=== PATIENT | female | born 2000 | race African-American/Black ===

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

== ENCOUNTER 2022-05-29 15:35 | Observation (INO) | payer OTHER, SELFPAY ==
[2022-05-29 15:24] VITALS: BP 95/53; PULSE 105; RESP 16; TEMP 36.8; O2SAT 100
[2022-05-29 15:47] LABS: Basophils Absolute Auto 0.1 K/mm3 (0.0-0.1); Basophils Percent Auto 0.4 % (0.2-1.2); Eosinophils Absolute Auto 0.1 K/mm3 (0-0.3); Eosinophils Percent Auto 0.3 % (0-4.4); Hematocrit 36.6 % (37.0-47.0); Hemoglobin 11.4 g/dL (12.0-15.0); Immature Granulocyte Absolute 0.08 K/mm3 (0.00-0.031); Immature Granulocyte Percent A 0.4 % (0-0.5); Lymphocytes Absolute Auto 1.28 K/mm3 (0.9-3.2); Lymphocytes Percent Auto 6.9 % (18.3-44.2); Mean Corpuscular HGB Conc 31.1 g/dl (32-36); Mean Corpuscular Hemoglobin 24.5 pg (26-34); Mean Corpuscular Volume 78.7 fl (80-100); Mean Platelet Volume 10.8 fl (7.4-10.4); Monocytes Absolute Auto 1.1 K/mm3 (0.1-0.6); Monocytes Percent Auto 5.9 % (2.6-8.5); Neutrophils Absolute Auto 15.9 K/mm3 (1.3-6.7); Neutrophils Percent Auto 86.1 % (45.5-73.1); Platelet Count Result 288 k/mm3 (150-375); Red Blood Count 4.65 M/mm3 (4.2-5.4); Red Cell Distribution Width 14.6 % (11.5-14.5); White Blood Count 18.5 K/mm3 (4.5-10.0)
[2022-05-29 15:56] LABS: Alanine Aminotransferase 25 U/L (6-35); Albumin Level 4.2 g/dL (3.7-5.6); Alkaline Phosphatase 100 U/L (45-116); Anion Gap 13 mmol/L (8-16); Aspartate Amino Transferase 24 U/L (14-36); Bilirubin,Total 0.4 mg/dL (0.2-1.3); Blood Urea Nitrogen 7 mg/dL (8-21); Calcium 8.6 mg/dL (8.9-10.7); Carbon Dioxide 22 mmol/L (22-30); Chloride 103 mmol/L (98-107); Estimated CRCL calculation 154 ml/min; Estimated Glomerular Filt Rate > 60; Glucose 92 mg/dL (65-110); Lipase 56 U/L (23-300); Potassium 3.3 mmol/L (3.4-5.0); Sodium 138 mmol/L (134-143)
[2022-05-29 16:01] VITALS: BP 100/80; PULSE 95
[2022-05-29 16:15] VITALS: BP 116/74; PULSE 96
[2022-05-29 16:18] VITALS: TEMP 37
--- NOTE | 2022-05-29 16:24 | PC.NURSE ---
1613- Spoke with Dr. Cote, labs and NST reviewed. Orders to send patient back to ED to be further evaluated by a physician.
--- NOTE | 2022-05-29 16:26 | OBADM ---
This patient, Laly Mcclendon, admitted to the OB room OB Post 117 for observation. Patient/family oriented to hospital policies and general routines including ID bracelet, bed and alarms, visiting hours, pain management, procedures, bathroom and other care routines, personal items, smoking policy, room service/diet, and visiting hours. Patient/Family are encouraged to report perceived risks to care and to ask questions if they do not understand what they are told or what they should do.
--- NOTE | 2022-06-27 21:53 | PM.OBTRLD ---
OB - Triage/Final Diagnosis Visit Information Comments/Additional reasons for admission: I have assessed the risk for this patient, Laly Mcclendon, and determined that she would benefit from observation care. Evaluation Laboratory results: Laboratory Tests 05/29/22 05/29/22 15:31 15:31 WBC 18.5 H RBC 4.65 Hgb 11.4 L D Hct 36.6 L MCV 78.7 L MCH 24.5 L MCHC 31.1 L RDW 14.6 H Plt Count 288 MPV 10.8 H Immature Gran % (Auto) 0.4 Neut % (Auto) 86.1 H Lymph % (Auto) 6.9 L [place] % (Auto) 5.9 Eos % (Auto) 0.3 Baso % (Auto) 0.4 Lymph # (Auto) 1.28 [place] # (Auto) 1.1 H Eos # (Auto) 0.1 Baso # (Auto) 0.1 Abs Immat Gran (auto) 0.08 H Absolute Neuts (auto) 15.9 H Absolute Nucleated RBC 0.0 Nucleated RBC % 0.0 Sodium 138 Potassium 3.3 L Chloride 103 Carbon Dioxide 22 Anion Gap 13 BUN 7 L Creatinine 0.50 L Estim Creat Clear Calc 154 Estimated GFR > 60 Glucose 92 Calcium 8.6 L Total Bilirubin 0.4 AST 24 ALT 25 Alkaline Phosphatase 100 Total Protein 8.0 Albumin 4.2 Lipase 56 Final Diagnosis (1) Abdominal pain: Code(s): R10.9 - Unspecified abdominal pain Status: Acute
== END 2022-05-29 16:30 | disposition other institution (70) ==
LOC: ANHOBPP 15:56
PROVIDERS: Emergency Medicine; Admitting Provider Obstetrics & Gynecology; Visit Provider Obstetrics & Gynecology
DX: O26.893 Other specified pregnancy related conditions, third trimester (principal); R10.9 Unspecified abdominal pain; Z3A.29 29 weeks gestation of pregnancy
CPT/HCPCS: 36415; 80053; 83690; 85025; G0378; G0379

== ENCOUNTER 2022-05-29 16:25 | Emergency (ER) | payer OTHER, SELFPAY ==
[2022-05-29 17:14] VITALS: BP 114/96; PULSE 94; RESP 16; TEMP 36.8; O2SAT 99
--- NOTE | 2022-05-29 18:45 | PC.NURSE ---
Left wr before ED room available.
== END 2022-05-29 18:46 | disposition left against medical advice (07) ==
DX: O26.892 Other specified pregnancy related conditions, second trimester (principal); Z3A.28 28 weeks gestation of pregnancy
CPT/HCPCS: 99199

== ENCOUNTER 2022-08-06 05:37 | Inpatient (IN) | payer OTHER, SELFPAY ==
--- NOTE | 2022-07-24 16:15 | PC.NURSE ---
Verified with OR schedule and Patient--C/S on 08/06/22 at 0730 Patient given requisition for lab draw on 08/05/22
[2022-08-06] VITALS (41 sets, daily range): BP systolic 82–125; BP diastolic 40–92; PULSE 53–84; RESP 15–18; TEMP 36.1–36.9; O2SAT 96–100
[2022-08-06 06:11] LABS: Basophils Percent Auto 0.2 % (0.2-1.2); Eosinophils Absolute Auto 0.1 K/mm3 (0-0.3); Eosinophils Percent Auto 0.9 % (0-4.4); Hematocrit 33.2 % (37.0-47.0); Hemoglobin 10.3 g/dL (12.0-15.0); Immature Granulocyte Absolute 0.13 K/mm3 (0.00-0.031); Immature Granulocyte Percent A 0.9 % (0-0.5); Lymphocytes Absolute Auto 1.92 K/mm3 (0.9-3.2); Lymphocytes Percent Auto 13.1 % (18.3-44.2); Mean Corpuscular Hemoglobin 23.5 pg (26-34); Mean Corpuscular Volume 75.8 fl (80-100); Mean Platelet Volume 10.4 fl (7.4-10.4); Monocytes Absolute Auto 1.1 K/mm3 (0.1-0.6); Monocytes Percent Auto 7.3 % (2.6-8.5); Neutrophils Absolute Auto 11.4 K/mm3 (1.3-6.7); Neutrophils Percent Auto 77.6 % (45.5-73.1); Platelet Count Result 273 k/mm3 (150-375); Red Blood Count 4.38 M/mm3 (4.2-5.4); Red Cell Distribution Width 15.7 % (11.5-14.5); White Blood Count 14.7 K/mm3 (4.5-10.0)
[2022-08-06 07:59] LABS: HIV 1/2 Ab P24 Ag Result Negative (Negative)
--- NOTE | 2022-08-06 08:02 | WPDANESEPPF ---
Anes - Initial Pre Proc Eval Procedure: Operation Date: 08/06/22 07:30 Proposed Procedures p Repeat Section - Augie Cote MD Date/Time: 08/06/22 08:02 Surgeon: Augie Cote MD Pre Op Diagnosis: c/s Patient Data Age: 21 Gender: F Height: Weight: 85 kg Last Vital Signs Pulse 84 08/06/22 06:31 BP 105/54 L 08/06/22 06:31 Allergies Allergy/AdvReac Type Severity Reaction Status Date / Time No Known Allergies Allergy Verified 07/24/22 16:01 Home Medications Medication Instructions Recorded Confirmed Type vit no.95-ferrous 1 tablet PO DAILY 09/22/20 08/06/22 History fumarate 28 mg-folic acid 800 mcg tablet () Laboratory Tests 08/06/22 08/06/22 08/06/22 06:05 06:05 06:05 WBC 14.7 K/mm3 H K/mm3 (4.5-10.0) RBC 4.38 M/mm3 M/mm3 (4.2-5.4) Hgb 10.3 g/dL L g/dL (12.0-15.0) Hct 33.2 % L % (37.0-47.0) MCV 75.8 fl L fl (80-100) MCH 23.5 pg L pg (26-34) MCHC 31.0 g/dl L g/dl (32-36) RDW 15.7 % H % (11.5-14.5) Plt Count 273 k/mm3 k/mm3 (150-375) MPV 10.4 fl fl (7.4-10.4) Immature Gran % (Auto) 0.9 % H % (0-0.5) Neut % (Auto) 77.6 % H % (45.5-73.1) Lymph % (Auto) 13.1 % L % (18.3-44.2) [place] % (Auto) 7.3 % % (2.6-8.5) Eos % (Auto) 0.9 % % (0-4.4) Baso % (Auto) 0.2 % % (0.2-1.2) Lymph # (Auto) 1.92 K/mm3 K/mm3 (0.9-3.2) [place] # (Auto) 1.1 K/mm3 H K/mm3 (0.1-0.6) Eos # (Auto) 0.1 K/mm3 K/mm3 (0-0.3) Baso # (Auto) 0.0 K/mm3 K/mm3 (0.0-0.1) Abs Immat Gran (auto) 0.13 K/mm3 H K/mm3 (0.00-0.031) Absolute Neuts (auto) 11.4 K/mm3 H K/mm3 (1.3-6.7) Absolute Nucleated RBC 0.0 K/mm3 K/mm3 (0.0-0.012) Nucleated RBC % 0.0 % % (0.0-0.2) RPR Pending HIV 1&2 Ab/P24 Ag 4thGn Blood Type B Positive Antibody Screen Negative 08/06/22 06:56 WBC RBC Hgb Hct MCV MCH MCHC RDW Plt Count MPV Immature Gran % (Auto) Neut % (Auto) Lymph % (Auto) [place] % (Auto) Eos % (Auto) Baso % (Auto) Lymph # (Auto) [place] # (Auto) Eos # (Auto) Baso # (Auto) Abs Immat Gran (auto) Absolute Neuts (auto) Absolute Nucleated RBC Nucleated RBC % RPR HIV 1&2 Ab/P24 Ag 4thGn Negative (Negative) Blood Type Antibody Screen Patient hx anesthesia problems: none Family hx anesthesia problems: none Results Review: All pre-operative results and documents have been reviewed as part of the pre-operative evaluation. 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 Family History Family History (Updated 07/24/22 @ 16:03 by Agustin Washington RN) Mother Arthritis Lupus Social History Social History Smoking status: Never smoker Substance use: never Lack of Transportation: No Lack of Food: Never True Current Housing: I Have Housing Concerned About Future Housing: No Difficulty Paying Gas/Electric Bills: No Difficulty Paying for Meds: No Currently Unemployed: No Education: High School Diploma/GED Difficulty w/ Childcare or Family Care: No Gender identity (if verbalized by the patient): Female Spiritual care concerns: No Anes - Eval Final PreProcedure Day of Procedure 08/06/22 08:02 Patient weight: obese Heart: regular rate and rhythm Lungs: clear to auscultation and normal air movement Airway: Mallampati scale class II Neurological: alert and oriented Last oral intake: >/= 8 hours ASA classification: II Emergent: no Anes
--- NOTE | 2022-08-06 08:05 | PM.IMHP ---
H&P: HPI History of Present Illness Date/Time: 08/06/22 08:05 Chief Complaint: Term Narrative: 21-year-old multiparous female with previous delivery at 39 weeks gestation who presents for repeat . We have agreed to repeat delivery. She understands that injuries may occur that result in hospitalization, more surgery, severe illness. She understands risk of hemorrhage and infection. she denies any nausea, vomiting, fever, chills. She denies any chest pain or shortness of breath. Review of Systems Review of Systems: All systems reviewed & are unremarkable except as noted in HPI and below Constitutional: Constitutional: Denies chills, Denies fatigue, Denies fever(s) and Denies weakness Eyes: Eyes: Denies blurry vision, Denies change in vision, Denies loss of peripheral vision, Denies loss of vision, Denies other visual disturbances and Denies eye pain ENT: Denies vertigo, Denies dizziness, Denies hearing loss, Denies mouth pain, Denies nasal obstruction, Denies neck mass and Denies neck pain Cardiovascular: Cardiovascular: Denies chest pain, Denies diaphoresis, Denies syncope, Denies leg edema and Denies dyspnea Respiratory: Respiratory: Denies chest congestion, Denies cough, Denies hemoptysis, Denies dyspnea and Denies wheezing Gastrointestinal: Gastrointestinal: Denies abdominal pain, Denies constipation, Denies diarrhea, Denies nausea and Denies vomiting Genitourinary: Genitourinary: Denies hematuria, Denies change in libido, Denies nocturia, Denies genital lesions, Denies flank pain and Denies urinary urgency Musculoskeletal: Musculoskeletal: Denies abnormal gait, Denies back pain, Denies myalgias, Denies arthralgias, Denies joint swelling, Denies muscle weakness and Denies neck pain Integumentary/Breasts: Skin/Breast: Denies swelling, Denies breast pain, Denies breast mass, Denies dry skin, Denies nipple discharge, Denies unusual bruising and Denies jaundice Neurologic: Denies Neuro-related abnormal movements, Denies Abnormal speech present, Denies abnormal gait, Denies behavioral changes, Denies confusion, Denies vertigo, Denies dizziness, Denies syncope, Denies loss of vision, Denies memory loss, Denies convulsions and Denies weakness Psychiatric: Psychiatric: Denies abnormal sleep pattern, Denies behavioral changes, Denies change in libido, Denies confusion, Denies depression, Denies anhedonia and Denies memory loss Endocrine: Endocrine: Reports no additional endocrine complaints, Denies change in libido and Denies fatigue Hematologic/Lymphatic: Hematologic/Lymphatic: Reports no additional hematologic/lymphatic complaints Allergic/Immunologic: Allergic/Immunologic: Reports no additional allergic/immunologic complaints and Denies wheezing PMFSH Past Medical History Medical History (Updated 06/27/22 @ 21:53 by Augie Cote MD) History of chlamydia 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 Family History Family History (Updated 07/24/22 @ 16:03 by Agustin Washington RN) Mother Arthritis Lupus Social History Social History Smoking status: Never smoker Substance use: never Lack of Transportation: No Lack of Food: Never True Current Housing: I Have Housing Concerned About Future Housing: No Difficulty Paying Gas/Electric Bills: No Difficulty Paying for Meds: No Currently Unemployed: No Education: High School Diploma/GED Difficulty w/ Childcare or Family Care: No Gender identity (if verbalized by the patient): Female Spiritual care concerns: No Meds Home Medications and Allergies Home Medications Medication Instructions Recorded Confirmed Type vit no.95-ferrous 1 tablet PO DAILY 09/22/20 08/06/22 History fumarate 28 mg-folic acid 800 mcg tablet () Allergies Allergy/AdvReac Type Severity Reaction Status Date / Time No Known Allergies Allergy Verified 07/24/22 16:01 Vital Signs
--- NOTE | 2022-08-06 08:07 | WPDHPUPDATE1 ---
History and Physical Update Update Date/Time: 08/06/22 08:07 History and Physical has been reviewed, including an updated exam of the patient. There are NO changes in the patient's condition. Risks, benefits, and alternatives have been discussed and questions answered. Patient agrees to proceed with procedure.
--- NOTE | 2022-08-06 08:58 | W.PM.PROC2 ---
Procedure Note - Detailed Date of Procedure 08/06/22 Pre-op Diagnosis Previous c/s Post-op Diagnosis Same Procedure Performed Low-transverse section Surgeon Augie Cote MD Anesthesia Spinal Indications previous Findings Normal gestational maternal anatomy, average size , normal Apgars. Description of Procedure The patient was taken the operating room. She was prepped and draped in dorsal supine position with a leftward tilt. This was done after spinal anesthetic was applied. A low-transverse skin incision was made and carried down till of the fascia with the knife. The fascial incision was made with the knife. The fascial incision was extended laterally with Polanco scissors. The fascia was tented upward superiorly and inferiorly the rectus muscles were dissected off bluntly. The rectus muscles were the midline. The preperitoneal fat and peritoneum were dissected open bluntly at the superior aspect of the rectus muscles. The peritoneal incision was extended superior and inferior with good position of bladder. The uterine incision was made with a scalpel down to the level of the amniotic cavity. The amniotic cavity was entered bluntly. The was delivered. The cord was clamped and cut and the was handed off to waiting pediatric staff. Cord bloods were obtained. The placenta was removed manually. The uterus was exteriorized. The uterus was cleared of all clots, debris and membranes. The uterus was closed in 0 Vicryl running lock fashion. An imbricating over a was placed along the incision line as well. The uterus was returned to the abdomen. The gutters were cleared of all clots and debris. The fascia was closed with 0 Vicryl running fashion. The subcutaneous tissue was irrigated pinpoint bleeders were cauterized. The skin was closed with subcuticular absorbable sam. The skin incision line was covered with glue. The patient tolerated the procedure well. She has taken recovery room in stable condition. Sponge lap and needle counts were correct x2. Estimated Blood Loss 350 Complications No immediate complications Condition Stable Disposition PACU
[2022-08-06] MEDS: OXYTOCIN 30 UNITS/NS 500 ML 30 UNITS/500 ML BAG 125 UNITS IV CONT (10:52)
[2022-08-06 14:20] LABS: Rapid Plasma Reagin Non-Reactive (NonReactive)
[2022-08-06] MEDS: DEXTROSE 5%/0.45% SOD CHL 1,000 ML 125 ML IV CONT (15:11)
[2022-08-06] MEDS: KETOROLAC 30 MG/ML VIAL (*BKC) IV PUSH (15:12)
--- NOTE | 2022-08-06 16:04 | PC.NURSE ---
[id number] Introductions were made, then consulted with patient to assess needs related to . Mother led the conversation with her?plans to feed?her infant and the?experience so far. Resources provided for inpatient and outpatient services with the mom/baby guide. Mother voiced understanding of information and receptive to assistance. Mother works well with her with encouragement and education. Encouraged understanding of the benefits of skin to skin (demonstrating unwrapping and placing upright on her chest), stimulating with massage touch, changing positions to encourage wakefulness, how to watch for early feeding cues, responsive feeding, feeding on demand (aiming for 8-12 times in 24 hours, about every 2-3 hours), milk production, building/maintaining a milk supply, duration of feeding, signs of adequate intake/output and how to record on the feeding sheet. Reviewed positioning and ear, shoulder, hip alignment, supporting the breast to facilitate a deep latch, asymmetrical latch (off-center), leading with the chin with a big, open, wide gape and body close to mother. Infant latched optimally to the right breast in football position. Education given to mother of how to visualize suck/swallow ratios and listen for drinking at the breast. was able to maintain latch without discomfort to mother. Nipple care reviewed with optimal latch and good positioning. Mother remains but states it feels weird . Infant remains effectively and mother discusses she might pump and feed. Mother voiced she did not get the opportunity to breastfeed her first child and she is unsure of how she wants to feed this infant. Mother was encouraged with positive signs and to discuss with her primary RN who is now present in the room. Reviewed good handwashing when or touching the breast/nipples to prevent infection. Resources used to facilitate learning were used with the tool, mom and baby guide. Mother voiced understanding of skin to skin, stimulating with massage touch, responsive feedings, hand expressed colostrum, talking to to encourage if it has been 2 -2.5 hours since the start of the last , to call if does not latch, or if there is discomfort with . Resources provided for inpatient/outpatient with the mom/baby guide. Parents voiced understanding of information, demonstrated learning and will call if there is a request for assistance. Primary RN is present and aware of effective and mothers concerns.
[2022-08-06] MEDS: HYDROcodone/acetaminophen (*CRX) 5-325 MG TABLET 1 TAB PO (21:09)
[2022-08-06] MEDS: IBUPROFEN 600 MG TABLET PO (21:10)
[2022-08-07] VITALS: BP 94/52; PULSE 84; RESP 18; TEMP 36.8; O2SAT 98
[2022-08-07] MEDS: HYDROcodone/acetaminophen (*CRX) 5-325 MG TABLET 1 TAB PO ×4 (00:01→19:42)
[2022-08-07 05:00] VITALS: BP 90/48; PULSE 75; RESP 18; TEMP 36.6; O2SAT 100
[2022-08-07] MEDS: IBUPROFEN 600 MG TABLET PO ×3 (05:08→19:42)
[2022-08-07 05:24] LABS: Basophils Percent Auto 0.2 % (0.2-1.2); Eosinophils Absolute Auto 0.1 K/mm3 (0-0.3); Eosinophils Percent Auto 0.9 % (0-4.4); Hematocrit 29.1 % (37.0-47.0); Hemoglobin 9.1 g/dL (12.0-15.0); Immature Granulocyte Absolute 0.08 K/mm3 (0.00-0.031); Immature Granulocyte Percent A 0.6 % (0-0.5); Lymphocytes Absolute Auto 2.26 K/mm3 (0.9-3.2); Lymphocytes Percent Auto 16.7 % (18.3-44.2); Mean Corpuscular HGB Conc 31.3 g/dl (32-36); Mean Corpuscular Hemoglobin 23.9 pg (26-34); Mean Corpuscular Volume 76.4 fl (80-100); Mean Platelet Volume 10.5 fl (7.4-10.4); Monocytes Absolute Auto 1.2 K/mm3 (0.1-0.6); Monocytes Percent Auto 8.5 % (2.6-8.5); Neutrophils Absolute Auto 9.9 K/mm3 (1.3-6.7); Neutrophils Percent Auto 73.1 % (45.5-73.1); Platelet Count Result 209 k/mm3 (150-375); Red Blood Count 3.81 M/mm3 (4.2-5.4); Red Cell Distribution Width 15.8 % (11.5-14.5); White Blood Count 13.5 K/mm3 (4.5-10.0)
[2022-08-07 06:45] VITALS: BP 91/52; PULSE 70; RESP 16; TEMP 36.8
[2022-08-07] MEDS: MULTIVIT/MIN/PREN/FOL AC/IRON TABLET 1 TAB PO (08:56)
[2022-08-07] MEDS: POLYSACCHARIDE IRON COMPLEX 150 MG CAPSULE PO ×2 (08:56→18:17)
[2022-08-07] MEDS: DOCUSATE SODIUM 100 MG CAPSULE PO ×2 (08:56→18:16)
--- NOTE | 2022-08-07 09:01 | WPDANLDPN2 ---
Anes-Prog Note L&D Date/Time: 08/07/22 09:01 Neuro status: Neuro function grossly intact. Cardiovascular status: normal Respiratory status: normal Airway patency: baseline Mental status: baseline Post-Op hydration status: normal Vital Signs: Last Vital Signs Temp 36.8 C 08/07/22 06:45 Pulse 70 08/07/22 06:45 Resp 16 08/07/22 06:45 BP 91/52 L 08/07/22 06:45 Pulse Ox 100 08/07/22 05:00 O2 Del Method Room Air 08/06/22 09:15 Pain score (VAS): 3 Post-procedural complaints: none Patient feedback: Patient satisfied with anesthetic care.
--- NOTE | 2022-08-07 09:01 | WPDANLDNPN2 ---
Anes-Prog Note L&D-Neuraxial Date/Time: 08/07/22 09:01 Neuraxial medications: intrathecal PF morphine Opiod-related complaints: none Patient feedback: Patient satisfied with post-operative pain management.
--- NOTE | 2022-08-07 09:38 | PM.OBPNVD ---
OB - PN: Subj Subjective Date/time seen: 08/07/22 09:38 s/p vaginal delivery day 1 OB - PN: Obj Data Labs 08/07/22 05:12 Labs: Laboratory Results - last 24 hr 08/06/22 08/07/22 06:05 05:12 WBC 13.5 H RBC 3.81 L Hgb 9.1 L Hct 29.1 L MCV 76.4 L MCH 23.9 L MCHC 31.3 L RDW 15.8 H Plt Count 209 MPV 10.5 H Immature Gran % (Auto) 0.6 H Neut % (Auto) 73.1 Lymph % (Auto) 16.7 L [place] % (Auto) 8.5 Eos % (Auto) 0.9 Baso % (Auto) 0.2 Lymph # (Auto) 2.26 [place] # (Auto) 1.2 H Eos # (Auto) 0.1 Baso # (Auto) 0.0 Abs Immat Gran (auto) 0.08 H Absolute Neuts (auto) 9.9 H Absolute Nucleated RBC 0.0 Nucleated RBC % 0.0 RPR Non-reactive OB - PN A/P Plan day: 1 Plan: routine care Time Spent With Patient Time: Total time spent is greater than 50% in coordination of care (as documented) at patient's floor/unit and/or counseling patient: Review of Systems Review of Systems: All systems reviewed & are unremarkable except as noted in HPI and below Exam Narrative: Incision CDI Const: General: cooperative, healthy appearing and comfortable
[2022-08-07 19:40] VITALS: BP 120/63; PULSE 102; RESP 16; TEMP 36.7
[2022-08-08] MEDS: IBUPROFEN 600 MG TABLET PO ×2 (03:30→09:40)
[2022-08-08] MEDS: HYDROcodone/acetaminophen (*CRX) 5-325 MG TABLET 1 TAB PO ×3 (03:30→13:01)
[2022-08-08 08:45] VITALS: BP 102/50; PULSE 72; RESP 16; TEMP 36.6; O2SAT 100
[2022-08-08] MEDS: SIMETHICONE 80 MG TAB.CHEW PO (09:40)
[2022-08-08] MEDS: MULTIVIT/MIN/PREN/FOL AC/IRON TABLET 1 TAB PO (09:40)
[2022-08-08] MEDS: POLYSACCHARIDE IRON COMPLEX 150 MG CAPSULE PO (09:40)
[2022-08-08] MEDS: DOCUSATE SODIUM 100 MG CAPSULE PO (09:40)
--- NOTE | 2022-08-08 09:52 | PM.OBPNVD ---
OB - PN: Subj Subjective Date/time seen: 08/08/22 09:52 s/p vaginal delivery day 2 OB - PN: Obj Data Labs 08/07/22 05:12 OB - PN A/P Plan day: 2 Plan: routine care Time Spent With Patient Time: Total time spent is greater than 50% in coordination of care (as documented) at patient's floor/unit and/or counseling patient: Review of Systems Review of Systems: All systems reviewed & are unremarkable except as noted in HPI and below Exam Const: General: cooperative, healthy appearing and comfortable
--- NOTE | 2022-08-08 10:14 | PM.OBDSVD ---
DS: Admitting Diagnosis Discharge Date 08/08/22 Admitting Diagnosis rpt section DS: Discharge Diagnosis Discharge Diagnosis (1) delivery delivered: Code(s): O82 - Encounter for delivery without indication Status: Acute OB - DS: Summary OB Procedures : None OB Procedures Intrapartum: OB Procedures: : None Peripartum Data Procedures: Procedures Operation Date: 08/06/22 07:30 Actual Procedure Side Surgeon p Repeat Section Not Applicable Augie Cote MD Time Spent with Patient Time attestation: Total time spent providing and/or coordinating discharge services: Discharge Plan Discharge Attending physician on discharge: Augie Cote Discharging Clinician: Anita Hinton Patient Disposition: Home, Self-Care Activity: pelvic rest Diet: regular Patient Instructions: Antibiotic Form Stand Alone Forms: General Discharge Information Follow-up/Referrals: Augie Cote MD [Physician] - 1 Week Discharge Medications: New hydrocodone-acetaminophen 5-325 mg Tablet 1 tablet PO Q3H PRN (Reason: Moderate Pain (4-6)) Qty: 25 0RF Continued PNV [id number] fumarate-FA [] 28 mg iron- 800 mcg Tablet 1 tablet PO DAILY Date of admission: 08/06/22 05:37 Primary Care Provider: UNKNOWN,DOCTOR Admitting Provider: Augie Cote Attending physician on admission: Augie Cote Condition: Stable
== END 2022-08-08 14:35 | disposition home or self-care (01) | DRG 540 ==
LOC: ANHOB2 08-08 11:55 → ANHLDR 08-10 09:36 → ANHOB2 08-10 09:36
PROVIDERS: Admitting Provider Obstetrics & Gynecology; Visit Provider Advanced Practice Midwife
PROC: 10D00Z1 Extraction of Products of Conception, Low, Open Approach (ICD-10-PCS; CPT 59514; principal; 2022-08-06 07:30)
DX: O34.219 Maternal care for unspecified type scar from previous cesarean delivery (principal); O98.52 Other viral diseases complicating childbirth; B00.9 Herpesviral infection, unspecified; Z3A.39 39 weeks gestation of pregnancy; Z37.0 Single live birth
CPT/HCPCS: 36415; 85025; 86592; 86703; 86850; 86900; 86901; A9270; G0432; J1885; J2274; J2590